=== PATIENT | male | born 1940 | race Caucasian/White ===

== ENCOUNTER 2017-03-07 11:21 | Observation (INO) | payer MEDICARE, OTHER ==
[2017-03-07 11:22] VITALS: BMI 22.3
--- NOTE | 2017-03-07 13:09 | C.PDOC ---
History Of Present Illness NEW ONSET NECK PAIN X 2 DAYS. R SIDE/FRONT NECK PAIN STATES UNABLE TO LAY FLAT DUE TO PAIN NOW B/L SIDE/FRONT NECK, WORSE W MOVEMENT. DENIES HO CHRONIC NECK PAIN. NO TRAUMA. NO ASSOC WEAKN/NUMB. UNABLE TO FULLY ELEVATE B/L ARMS DUE TO NECK PAIN. EXAM MOD DIST NONTOXIC NECK TEND B/L SIDE/FRONT NECK NO SWELL, SPASM, DEFORM; LIMITED ROM; NO CSPINE TEND NEURO INTACT Time Seen by Provider: 03/07/17 12:57 Chief Complaint (Nursing): Back Pain History Per: Patient History/Exam Limitations: no limitations Onset/Duration Of Symptoms: Days (2) Current Symptoms Are (Timing): Still Present Quality Of Discomfort: "Pain" Previous Symptoms: denies: Back Pain, Neck Pain, Chronic Pain Associated Symptoms: None Recent travel outside of the [place]: No Past Medical History Reviewed: Historical Data, Nursing Documentation, Vital Signs Vital Signs: Last Vital Signs Temp 98.1 F 03/07/17 14:47 Pulse 54 L 03/07/17 14:47 Resp 18 03/07/17 14:47 BP 114/67 03/07/17 14:47 Pulse Ox 97 03/07/17 14:47 - Medical History PMH: Anemia, Back Problems (Herniated Disc), Benign Prostatic Hyperplasia, CAD, Emphysema, HTN, Hyperlipidemia, Peripheral Edema, TIA - [facility] Procedures MAGNETIC RESONANCE IMAGING OF BRAIN AND BRAIN STEM (03/19/02) MRI OF OTHER AND UNSPECIFIED SITES (03/19/02) TETANUS TOXOID ADMINIST (12/12/14) Family History: States: Unknown Family Hx - Social History Hx Tobacco Use: No Hx Alcohol Use: No Hx Substance Use: No - Immunization History Hx Tetanus Toxoid Vaccination: (unk) Hx Influenza Vaccination: No Hx Pneumococcal Vaccination: (unk) Review Of Systems Except As Marked, All Systems Reviewed And Found Negative. Constitutional: Negative for: Fever, Chills Gastrointestinal: Negative for: Nausea, Vomiting Musculoskeletal: Positive for: Neck Pain, Back Pain Skin: Negative for: Rash Neurological: Negative for: Weakness, Numbness Physical Exam - Physical Exam Appears: Non-toxic, Other (MODERATE DISTRESS) Skin: Normal Color, Warm, Dry Head: Atraumatic, Normacephalic Neck: Decreased ROM, No Midline Cervical Tenderness, Paracervical Tenderness (B/ L SIDE/FRONT NECK ), No Step Off Deformity, Other (NO SWELLING, NO SPASM. ) Chest: Symmetrical Cardiovascular: Rhythm Regular Respiratory: Normal Breath Sounds, No Rales, No Rhonchi, No Wheezing Gastrointestinal/Abdominal: Soft, No Tenderness Back: No Vertebral Tenderness Extremity: Normal ROM, Capillary Refill (< 2 SEC. ) Neurological/Psych: Oriented x3, Normal Speech, Normal Cognition, Normal Motor, Normal Sensation, Other (NEURO INTACT) ED Course And Treatment - Laboratory Results Result Diagrams: 03/07/17 13:50 03/07/17 13:50 O2 Sat by Pulse Oximetry: 99 (RA) Pulse Ox Interpretation: Normal - Other Rad C SPINE X-Ray: Interpreted by Me (NEG) NECK SOFT X-Ray: Interpreted by Me (NEG) Progress - Re-Evaluation Re-evaluation Note: 03/07/17 13:10 MORPHINE, TORADOL, LABS. NECK SOFT TISSUE AND C-SPINE X-RAYS ORDERED. ED OBSERVATION Discharge: Yes Date of observation admission: 03/07/17 Time of observation admission: 12:00 - Observation admission statement Patient is being placed in observation because:: NECK PAIN - Goals of Observation Goals of observation are:: SX IMPROVE; - Progress Note Progress Note: 03/07/17 14:53 FEELS BETTER. REQUESTING TYL #2 Disposition Counseled Patient/Family Regarding: Studies Performed, Diagnosis, Need For Followup, Rx Given - Disposition Disposition: HOME/ ROUTINE Disposition Time: 14:53 Condition: IMPROVED - Clinical Impression Clinical Impression: Neck pain - Scribe Statement The provider has reviewed the documentation as recorded by the Andreina Brooks Provider Attestation: All medical record entries made by the Andreina were at my direction and personally dictated by me. I have reviewed the chart and agree that the record accurately reflects my personal performance of the history, physical exam, medical decision making, and the department course for this patient. I have also personally directed, reviewed, and agree with the discharge instructions and disposition.
[2017-03-07] MEDS ORDERED: Morphine 4 MG/ML VIAL ONE (13:51)
[2017-03-07 13:57] LABS: BASO # 0.1 K/uL (0.0-0.2); BASO % 1.2 % (0.0-2.0); EOS # 0.1 K/uL (0.0-0.7); EOS % 2.2 % (0.0-4.0); HEMATOCRIT 30.6 % (35.0-51.0); LYMPH # 1.4 K/uL (1.0-4.3); LYMPH % 25.2 % (20.0-40.0); MEAN CORPUSCULAR HGB CONC 32.6 g/dL (33.0-37.0); MEAN PLATELET VOLUME 11.5 fL (7.2-11.7); MONO # 0.6 K/uL (0.0-0.8); MONO % 11.3 % (0.0-10.0); NRBC % 0.1 % (0.0-2.0); RED CELL DISTRIBUTION WIDTH 17.4 % (11.5-14.5); WHITE BLOOD COUNT 5.7 K/uL (4.8-10.8)
[2017-03-07 13:58] LABS: MEAN CELL VOLUME 104.2 fL (80.0-94.0)
[2017-03-07 14:01] LABS: CHLORIDE 103 mmol/L (98-107); POTASSIUM 4.6 mmol/L (3.6-5.2); SODIUM 141 mmol/L (132-148)
[2017-03-07 14:03] LABS: GFR AFRICAN-AMERICAN > 60
[2017-03-07 14:04] LABS: BLOOD UREA NITROGEN 10 mg/dL (9-20); CALCIUM 8.7 mg/dl (8.6-10.4); CARBON DIOXIDE 24 mmol/L (22-30); GLUCOSE,RANDOM 97 mg/dL (75-110)
[2017-03-07 14:48] VITALS: BP 114/67; PULSE 54; RESP 18; TEMP 98.1
[2017-03-07 14:54] VITALS: O2SAT 99
--- NOTE | 2017-03-07 15:51 | RAD ---
PROCEDURE: Cervical Spine Radiographs. HISTORY: Pain. COMPARISON: None. FINDINGS: BONES: The vertebral bodies are maintained in height. The transverse processes and posterior elements appear intact. The AP view is somewhat technically limited due to the patient's mandible. DISC SPACES: The intervertebral disc spaces are maintained in height. There is grade 1 anterolisthesis at C3-4. Normal alignment is maintained elsewhere. SOFT TISSUES: Normal. No prevertebral soft tissue swelling. OTHER FINDINGS: None. IMPRESSION: Grade 1 anterolisthesis at C3-4. No evidence of fracture. Limited examination.
--- NOTE | 2017-03-07 15:55 | RAD ---
PROCEDURE: Radiographs of the neck (soft tissue). HISTORY: R ANTERIOR LAT NECK PAIN COMPARISON: None. TECHNIQUE: Frontal and Lateral Radiographs of the neck, optimized for soft tissue visualization. FINDINGS: SOFT TISSUES: There is mild nonspecific deviation of the tracheal air column towards the right. . No retropharyngeal soft tissue swelling. Normal epiglottis. No radiopaque foreign body seen. CERVICAL SPINE: Grade 1 anterolisthesis at C3-4. No evidence of fracture. OTHER FINDINGS: None. IMPRESSION: No significant soft tissue abnormality.
== END 2017-03-07 14:54 | disposition home or self-care (01) ==
LOC: C.ER 11:21 → C.9OBSV 12:00
PROVIDERS: ADMIT Emergency Medicine; ATTEND Emergency Medicine
DX: M54.2 Cervicalgia (principal); J43.9 Emphysema, unspecified; I10 Essential (primary) hypertension; Z86.73 Personal history of transient ischemic attack (TIA), and cerebral infarction without residual deficits
CPT/HCPCS: 36415; 70360; 72040; 80048; 85025; 96372; 96374; G0378; J1885; J2270

== ENCOUNTER 2017-08-15 16:21 | Emergency (ER) | payer MEDICARE, OTHER ==
[2017-08-15 16:22] VITALS: BMI 22.3
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
[2017-08-15 17:34] VITALS: BP 125/69; PULSE 56; RESP 18; TEMP 97.4
[2017-08-15] MEDS ORDERED: Bacitracin 500 Units/gm Oint Foilpak UD ONE (17:36)
[2017-08-15 18:07] VITALS: O2SAT 98
--- NOTE | 2017-08-16 08:06 | RAD ---
PROCEDURE: Left Foot Radiographs. HISTORY: trauma COMPARISON: None. FINDINGS: BONES: Developmental variant-os peroneum noted. No fracture. Prominent posterior talar process JOINTS: First metatarsal-phalangeal joint space narrowing SOFT TISSUES: Normal. OTHER FINDINGS: None. IMPRESSION: No fracture. 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
== END 2017-08-15 17:45 | disposition home or self-care (01) ==
LOC: C.ER 16:21
DX: S93.402A Sprain of unspecified ligament of left ankle, initial encounter (principal); W22.8XXA Striking against or struck by other objects, initial encounter; Y93.89 Activity, other specified; Y92.9 Unspecified place or not applicable
CPT/HCPCS: 73630; 96372; 99285; J1885

== ENCOUNTER 2018-01-26 16:53 | Emergency (ER) | payer MEDICARE, OTHER ==
[2018-01-26 16:53] VITALS: BMI 22.3
--- NOTE | 2018-01-26 17:54 | C.PDOC ---
History Of Present Illness 78 yr old male with PMHx of diabetes, presents to the ER with complaints of SOB and dizziness which started today. Patient states he drank orange juice today and believe it may have been a contributing factor. Patient denies history of DVT, PE, fever, chills, vision changes, chest pain, nausea, vomiting, weakness or numbness. Time Seen by Provider: 01/26/18 17:20 Chief Complaint (Nursing): Dizziness/Lightheaded History Per: Patient History/Exam Limitations: no limitations Onset/Duration Of Symptoms: Sudden Onset (today) Past Medical History Reviewed: Historical Data, Nursing Documentation, Vital Signs Vital Signs: Last Vital Signs Temp 97.4 F L 01/26/18 16:58 Pulse 65 01/26/18 16:58 Resp 15 01/26/18 16:58 BP 149/68 01/26/18 16:58 Pulse Ox 100 01/26/18 18:43 - Medical History PMH: Anemia, Back Problems (Herniated Disc), Benign Prostatic Hyperplasia, CAD, Emphysema, HTN, Hyperlipidemia, Peripheral Edema, TIA - [facility] Procedures MAGNETIC RESONANCE IMAGING OF BRAIN AND BRAIN STEM (03/19/02) MRI OF OTHER AND UNSPECIFIED SITES (03/19/02) TETANUS TOXOID ADMINIST (12/12/14) Family History: States: No Known Family Hx - Social History Hx Tobacco Use: No Hx Alcohol Use: No Hx Substance Use: No - Immunization History Hx Tetanus Toxoid Vaccination: (unk) Hx Influenza Vaccination: No Hx Pneumococcal Vaccination: (unk) Review Of Systems Except As Marked, All Systems Reviewed And Found Negative. Constitutional: Negative for: Fever, Chills Eyes: Negative for: Vision Change Cardiovascular: Negative for: Chest Pain Respiratory: Positive for: Shortness of Breath Gastrointestinal: Negative for: Nausea, Vomiting Neurological: Positive for: Dizziness. Negative for: Weakness, Numbness Physical Exam - Physical Exam Appears: Non-toxic, No Acute Distress Skin: Warm, Dry, No Rash Eye(s): bilateral: Normal Inspection, PERRL, EOMI Oral Mucosa: Moist Cardiovascular: Rhythm Regular, No Murmur Respiratory: Normal Breath Sounds, No Rales, No Rhonchi, No Stridor, No Wheezing Gastrointestinal/Abdominal: Normal Exam, Bowel Sounds, Soft Extremity: Normal ROM, No Swelling Neurological/Psych: Oriented x3, Normal Speech ED Course And Treatment - Laboratory Results Result Diagrams: 01/26/18 18:03 01/26/18 18:03 ECG: Interpreted By Me, Viewed By Me ECG Rhythm: Sinus Rhythm Interpretation Of ECG: LBBB. Unchanged from previous, 08/22/2014. Rate From EC (BPM) O2 Sat by Pulse Oximetry: 100 (RA) Pulse Ox Interpretation: Normal Medical Decision Making Medical Decision Making: PLAN: * CXR * EKG * Labs * Urinalysis Disposition - Disposition Disposition Time: 19:00 Condition: FAIR Forms: [email or web address] (Andorran) - Clinical Impression Clinical Impression: Dizziness - Scribe Statement The provider has reviewed the documentation as recorded by the Scribe Lotus Hoffmann Provider Attestation: All medical record entries made by the Scribe were at my direction and personally dictated by me. I have reviewed the chart and agree that the record accurately reflects my personal performance of the history, physical exam, medical decision making, and the department course for this patient. I have also personally directed, reviewed, and agree with the discharge instructions and disposition. Physician Patient Turnover Patient Signed Over To: Rico Zambrano Handoff Comments: pending labs, reevaluation and disposition
[2018-01-26 18:06] LABS: BASO # 0.1 K/uL (0.0-0.2); BASO % 1.4 % (0.0-2.0); EOS # 0.1 K/uL (0.0-0.7); EOS % 2.5 % (0.0-4.0); HEMOGLOBIN 9.4 g/dL (12.0-18.0); LYMPH # 1.5 K/uL (1.0-4.3); LYMPH % 37.4 % (20.0-40.0); MEAN CELL VOLUME 104.6 fL (80.0-94.0); MEAN CORPUSCULAR HEMOGLOBIN 35.9 pg (27.0-31.0); MEAN CORPUSCULAR HGB CONC 34.3 g/dL (33.0-37.0); MONO # 0.5 K/uL (0.0-0.8); NEUT # 1.9 K/uL (1.8-7.0); NEUT % 46.7 % (50.0-75.0); NRBC % 0.2 % (0.0-2.0); RBC 2.61 Mil/uL (4.40-5.90); RED CELL DISTRIBUTION WIDTH 17.2 % (11.5-14.5)
[2018-01-26 18:33] LABS: ALB/GLOB RATIO 1.1 (1.0-2.1); ALBUMIN 4.3 g/dL (3.5-5.0); ALT/SGPT 49 U/L (21-72); AST/SGOT 35 U/L (17-59); BLOOD UREA NITROGEN 7 mg/dL (9-20); GFR AFRICAN-AMERICAN > 60; GFR NON-AFRICAN AMERICAN 59
[2018-01-26 18:45] LABS: B-TYPE NATRIURETIC PEPTIDE 218 pg/mL (0-900)
[2018-01-26 19:10] LABS: SQUAMOUS EPITHIAL < 1 /hpf (0-5); URINE BACTERIA RARE (<OCC); URINE BILIRUBIN NEGATIVE (NEGATIVE); URINE BLOOD NEGATIVE (NEGATIVE); URINE CLARITY Clear (Clear); URINE COLOR Straw (YELLOW); URINE GLUCOSE (UA) NORMAL (Normal); URINE LEUKOCYTE ESTERASE NEG Leu/uL (Negative); URINE NITRATE NEGATIVE (NEGATIVE); URINE PROTEIN NEGATIVE (NEGATIVE); URINE UROBILINOGEN NORMAL mg/dL (0.2-1.0)
[2018-01-26 19:46] VITALS: BP 121/72; PULSE 60; RESP 16; TEMP 98.5; O2SAT 99
--- NOTE | 2018-01-27 07:21 | RAD ---
Chest x-ray single frontal view History: Shortness of breath. Comparison: None available. Findings: Biapical pleural thickening with upper lobe granulomatous changes. Diffuse increased interstitial lung markings. Right hilar prominence. Bibasilar breast and nipple shadows. Tortuous aorta. Calcification at the aortic knob. Degenerative changes in the spine. Impression: Biapical pleural thickening with upper lobe granulomatous changes. Diffuse increased interstitial lung markings. Right hilar prominence.
--- NOTE | 2018-01-28 08:56 | CARD ---
APPROVED REPORT EKG Measurement Heart [id number] <Conclusion> Normal sinus rhythm Left bundle branch block Abnormal ECG
== END 2018-01-26 20:51 | disposition left against medical advice (07) ==
LOC: C.ER 16:53
DX: R42 Dizziness and giddiness (principal)

== ENCOUNTER 2018-02-18 10:04 | Emergency (ER) | payer MEDICARE, OTHER ==
[2018-02-18 10:04] VITALS: BMI 22.3
[2018-02-18 10:24] VITALS: BP 155/80; PULSE 66; RESP 18; TEMP 97.5; O2SAT 100
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
[2018-02-18] MEDS ORDERED: Silver Sulfadiazine 1% Cream (20 gm) ONE (11:04)
[2018-02-18] MEDS ORDERED: Silver Sulfadiazine 1% Cream (20 gm) TOP STA (11:09)
== END 2018-02-18 11:16 | disposition home or self-care (01) ==
LOC: C.ER 10:04
DX: T23.062A Burn of unspecified degree of back of left hand, initial encounter (principal); X13.1XXA Other contact with steam and other hot vapors, initial encounter